=== PATIENT | female | born 1950 | race Hispanic/Latino ===

== ENCOUNTER 2020-07-26 07:00 | Observation (INO) | payer MEDICARE ==
--- NOTE | 2020-07-26 10:30 | Event Note ---
ED Screening Note ED Screening Note: was diagnosed UTI a week ago at [place] has been on abx for a week +generalized +dizziness +nausea one episode of vomiting no fever feels like room is spinning states she had a very brief episode of syncope +exertional SOB no CP no cough PMHx DM, vertigo, ?lupus repeat oxygen saturation 94% on RA This initial assessment/diagnostic orders/clinical plan/treatment(s) is/are subject to change based on patients health status, clinical progression and re- assessment by fellow clinical providers in the ED. Further treatment and workup at subsequent clinical providers discretion. Patient/guardian urged not to elope from the ED as their condition may be serious if not clinically assessed and managed. Initial orders include: labs, EKG, CXR, CT head
--- NOTE | 2020-07-26 11:30 | XRay Report ---
CHEST 2 VIEWS INDICATION / CLINICAL INFORMATION: weakness, hypoxia. COMPARISON: None available. FINDINGS: SUPPORT DEVICES: None. HEART / MEDIASTINUM: There is mild cardiomegaly. LUNGS / PLEURA: There is mild interstitial edema without focal consolidation. No pneumothorax. ADDITIONAL FINDINGS: No significant additional findings. IMPRESSION: 1. Findings likely indicating mild CHF with mild cardiomegaly and interstitial pulmonary edema. Signer Name: Moshe Eddy MD Signed: 07/26/2020 11:26 AM Workstation Name: [id number]
--- NOTE | 2020-07-26 12:50 | Cat Scan Report ---
CT head/brain wo con INDICATION / CLINICAL INFORMATION: 69 years Female; dizziness, syncope. TECHNIQUE: Routine CT head without contrast. All CT scans at this location are performed using CT dos e reduction for ALARA by means of automated exposure control. COMPARISON: None. FINDINGS: BRAIN / INTRACRANIAL CONTENTS: There is moderate cerebral white matter disease most consistent with m icrovascular angiopathy. There is mild cerebral atrophy. The ventricular system is correspondingly ap propriate in size and configuration. There are small foci of calcification within the left basal gang alix and along the third ventricle. However, there is no clear CT evidence of acute intracranial hemor rhage or significant mass effect. ORBITS: No significant abnormality of visualized orbits. SINUSES / MASTOIDS: There is mild opacification small air-fluid level along the posterior right sphen oid sinus. There is also scattered opacification within the residual right mastoid air cells and atti c. CRANIOCERVICAL JUNCTION: No significant abnormality. ADDITIONAL FINDINGS: None. IMPRESSION: 1. There is moderate microvascular angiopathy without CT ends of acute intracranial hemorrhage. 2. This mild opacification along the posterior right sphenoid sinus. There is also opacification of t he residual right mastoid air cells. Signer Name: Shaheen Butterfield MD Signed: 07/26/2020 12:45 PM Workstation Name: [id number]
[2020-07-26 14:25] LABS: Basophils % (Auto) 0.2 % (0.0-1.8); Eosinophils % (Auto) 0.1 % (0.0-4.3); Hemoglobin 13.6 gm/dl (10.1-14.3); Lymphocytes # (Auto) 0.6 K/mm3 (1.2-5.4); Lymphocytes % (Auto) 15.3 % (13.4-35.0); Mean Corpuscular HGB Conc 33 % (30-34); Mean Corpuscular Volume 98 fl (79-97); Monocytes # (Auto) 0.5 K/mm3 (0.0-0.8); Monocytes % (Auto) 12.2 % (0.0-7.3); Red Blood Count 4.28 M/mm3 (3.65-5.03); Red Cell Distribution Width 16.7 % (13.2-15.2)
[2020-07-26 14:28] LABS: Platelet Count 94 K/mm3 (140-440)
[2020-07-26 14:35] LABS: Albumin 3.2 g/dL (3.9-5); Calcium 9.1 mg/dL (8.4-10.2)
[2020-07-26] MEDS ORDERED: CEFEPIME/NS 2 GM/100 ML 2 GM/100 ML BAG IV ONE (14:52)
[2020-07-26] MEDS ORDERED: SODIUM CHLORIDE 0.9% 1000 ML 1,000 ML IV ONE (18:18)
--- NOTE | 2020-07-26 19:36 | Emergency Department Report ---
- General Chief complaint: Weakness Stated complaint: NAUSEA/EMESIS/SYNCOPE PUI?: No Time Seen by Provider: 07/26/20 10:24 Source: patient Mode of arrival: Wheelchair Limitations: No Limitations - History of Present Illness Initial comments: Chief complaint: Weakness HPI: This is a 69-year-old female with history of diabetes mellitus, hypertension, vertigo, blindness in 1 eye who presents with weakness fatigue dizziness. She has been on antibiotics for 7 days for UTI. She does not feel that it is helping. She was evaluated and treated overnight at [facility] 1 week ago. She was given antibiotics and IV fluid. Today she was just too weak to get up off her sofa. She denies nausea. She has been eating well. She called 911 for EMS transport this morning. She denies syncope. She denies chest pain. She does have nausea. Patient was concern for bilateral feet swelling exertional shortness of breath. Patient has had "the works". She has been eating well. Ate restaurant food for holiday. Medications: Pantoprazole Insulin NPH Metformin Lisinopril PCP Dr. Glo Lara MD Complaint: generalized weakness -: Gradual, week(s) (1) Location: generalized Severity: severe Consistency: constant Improves with: none Worsens with: exertion Context: recent illness Associated Symptoms: nausea/vomiting, other (feet swelling, dyspnea) - Related Data Allergies Allergy/AdvReac Type Severity Reaction Status Date / Time codeine Allergy Unknown Verified 07/26/20 08:39 Penicillins Allergy Rash Verified 07/26/20 08:39 ED Review of Systems ROS: Stated complaint: NAUSEA/EMESIS/SYNCOPE Other details as noted in HPI Comment: All other systems reviewed and negative Constitutional: malaise. denies: chills, fever Respiratory: shortness of breath. denies: wheezing Cardiovascular: denies: chest pain Gastrointestinal: nausea. denies: abdominal pain ED Past Medical Hx - Past Medical History Previous Medical History?: Yes Hx Hypertension: Yes Hx Diabetes: Yes Additional medical history: vertigo - Family History Family history: diabetes, hypertension - Social History Substance Use Type: None ED Physical Exam - General Limitations: No Limitations General appearance: alert, in no apparent distress - Head Head exam: Present: atraumatic, normocephalic - Eye Eye exam: Present: normal appearance - ENT ENT exam: Present: mucous membranes moist - Neck Neck exam: Present: normal inspection, full ROM - Respiratory Respiratory exam: Present: normal lung sounds bilaterally. Absent: respiratory distress, wheezes, rales, rhonchi - Cardiovascular Cardiovascular Exam: Present: regular rate, normal rhythm, normal heart sounds. Absent: systolic murmur, diastolic murmur, rubs, gallop - GI/Abdominal GI/Abdominal exam: Present: soft, normal bowel sounds. Absent: distended, tenderness, guarding, rebound - Extremities Exam Extremities exam: Present: pedal edema, other (pretibial edema) - Neurological Exam Neurological exam: Present: alert, oriented X3 - Psychiatric Psychiatric exam: Present: normal affect, normal mood - Skin Skin exam: Present: warm, dry, intact, normal color. Absent: rash ED Course Vital Signs 07/26/20 08:40 Temperature 97.5 F L Pulse Rate 86 Respiratory 18 Rate Blood Pressure 107/64 [Right] O2 Sat by Pulse 91 Oximetry ED Medical Decision Making - Lab Data Result diagrams: 07/26/20 13:28 07/26/20 20:11 Laboratory Results - last 24 hr 07/26/20 07/26/20 07/26/20 13:28 13:28 13:28 WBC 4.1 L RBC 4.28 Hgb 13.6 Hct 42.0 MCV 98 H MCH 32 MCHC 33 RDW 16.7 H Plt Count 94 L Lymph % (Auto) 15.3 [place] % (Auto) 12.2 H Eos % (Auto) 0.1 Baso % (Auto) 0.2 Lymph # (Auto) 0.6 L [place] # (Auto) 0.5 Eos # (Auto) 0.0 Baso # (Auto) 0.0 Seg Neutrophils % 72.2 H Seg Neutrophils # 3.0 Sodium 136 L Potassium 5.7 H Chloride 103.6 Carbon Dioxide 19 L Anion Gap 19 BUN 27 H Creatinine 2.2 H Estimated GFR 22 BUN/Creatinine Ratio 12 Glucose 154 H Lactic Acid 3.60 H* Calcium 9.1 Magnesium 1.90 Total Bilirubin 3.60 H AST 112 H ALT 57 H Alkaline Phosphatase 104 Total Creatine Kinase 137 H Troponin T 0.097 H NT-Pro-B Natriuret Pep 4060 H Total Protein 7.7 Albumin 3.2 L Albumin/Globulin Ratio 0.7 Urine Color Urine Turbidity Urine pH Ur Specific [place] Urine Protein Urine Glucose (UA) Urine Ketones Urine Blood Urine Nitrite Urine Bilirubin Urine Ictotest Urine Urobilinogen Ur Leukocyte Esterase Urine WBC (Auto) Urine RBC (Auto) U Epithel Cells (Auto) Urine Bacteria (Auto) Ur Renal Epithelial Cell Urine Mucus 07/26/20 07/26/20 07/26/20 15:22 19:09 20:11 WBC RBC Hgb Hct MCV MCH MCHC RDW Plt Count Lymph % (Auto) [place] % (Auto) Eos % (Auto) Baso % (Auto) Lymph # (Auto) [place] # (Auto) Eos # (Auto) Baso # (Auto) Seg Neutrophils % Seg Neutrophils # Sodium Potassium 5.6 H Chloride Carbon Dioxide Anion Gap BUN Creatinine Estimated GFR BUN/Creatinine Ratio Glucose Lactic Acid 3.40 H* Calcium Magnesium Total Bilirubin AST ALT Alkaline Phosphatase Total Creatine Kinase Troponin T NT-Pro-B Natriuret Pep Total Protein Albumin Albumin/Globulin Ratio Urine Color Ayanna Urine Turbidity Cloudy Urine pH 5.0 Ur Specific [place] 1.027 Urine Protein >500 Urine Glucose (UA) 50 Urine Ketones Neg Urine Blood Sm Urine Nitrite Neg Urine Bilirubin Sm Urine Ictotest Negative Urine Urobilinogen 2.0 Ur Leukocyte Esterase Neg Urine WBC (Auto) 47.0 H Urine RBC (Auto) 23.0 U Epithel Cells (Auto) 40.0 H Urine Bacteria (Auto) 1+ Ur Renal Epithelial Cell 3 Urine Mucus 1+ - EKG Data -: EKG Interpreted by Ne EKG shows normal: sinus rhythm, axis, QRS complexes Rate: normal - EKG Data Interpretation: nonspecific ST-T wave freya 07/26/20 19:34 EKG obatained 1104 EKG interpreted by nj NSR 90 nl axis prolonged Qtc NO st ELEVATION nonspecific T wave - Radiology Data Radiology results: report reviewed, image reviewed CHEST 2 VIEWS INDICATION / CLINICAL INFORMATION: weakness, hypoxia. COMPARISON: None available. FINDINGS: SUPPORT DEVICES: None. HEART / MEDIASTINUM: There is mild cardiomegaly. LUNGS / PLEURA: There is mild interstitial edema without focal consolidation. No pneumothorax. ADDITIONAL FINDINGS: No significant additional findings. IMPRESSION: 1. Findings likely indicating mild CHF with mild cardiomegaly and interstitial pulmonary edema CT head/brain wo con INDICATION / CLINICAL INFORMATION: 69 years Female; dizziness, syncope. TECHNIQUE: Routine CT head without contrast. All CT scans at this location are performed using CT dose reduction for ALARA by means of automated exposure control. COMPARISON: None. FINDINGS: BRAIN / INTRACRANIAL CONTENTS: There is moderate cerebral white matter disease most consistent with microvascular angiopathy. There is mild cerebral atrophy. The ventricular system is correspondingly appropriate in size and configuration. There are small foci of calcification within the left basal ganglia and along the third ventricle. However, there is no clear CT evidence of acute intracranial hemorrhage or significant mass effect. ORBITS: No significant abnormality of visualized orbits. SINUSES / MASTOIDS: There is mild opacification small air-fluid level along the posterior right sphenoid sinus. There is also scattered opacification within the residual right mastoid air cells and attic. CRANIOCERVICAL JUNCTION: No significant abnormality. ADDITIONAL FINDINGS: None. IMPRESSION: 1. There is moderate microvascular angiopathy without CT ends of acute intracranial hemorrhage. 2. This mild opacification along the posterior right sphenoid sinus. There is also opacification of the residual right mastoid air cells CT ABDOMEN AND PELVIS WITHOUT CONTRAST INDICATION / CLINICAL INFORMATION: abnormal LFTS MARQUIS. TECHNIQUE: Axial CT images were obtained through the abdomen and pelvis without IV con trast. All CT scans at this location are performed using CT dose reduction for ALARA by means of a utomated exposure control. COMPARISON: None available. FINDINGS: LOWER CHEST: Mild cardiomegaly and calcification of the mitral apparatus. Bibasilar scattered groundglass with interlobular septal thickening. Trace right-sided pleural effusion. 4 mm nodule in the left lung base (axial series 2 image 32). HEPATOBILIARY: Nodular contour suggesting cirrhosis. No focal lesion. Gallbladder is moderately distended with mild gallbladder wall thickening possibly representing sequela of hepatic disease or malnutrition. No biliary ductal dilatation. PANCREAS: No significant abnormality. SPLEEN: Mildly enlarged without focal lesion. ADRENALS: No significant abnormality. GENITOURINARY: 4 mm calcification at the right interpolar region possibly representing a nonobstructing nephrolith. Left kidney demonstrates no significant abnormality ureters demonstrate no significant abnormality. Bladder is decompressed. GASTROINTESTINAL/MESENTERY: Appendix demonstrates no significant abnormality. No significant bowel inflammation. No bowel obstruction. Mild scattered abdominal free fluid, likely ascites. Mild mesenteric haziness. RETROPERITONEUM: Multiple normal-sized retroperitoneal lymph nodes as well as some periaortic postoperative change. Prominent portal lymph nodes are present measuring up to 1.1 cm (axial series 2 image 56). REPRODUCTIVE ORGANS: No significant abnormality. VASCULAR: Moderate atherosclerotic calcification without acute abnormality. Mild-moderate distal esophageal, multiple varices are present. SKELETAL SYSTEM: No significant abnormality. ADDITIONAL FINDINGS: Moderate anasarca. IMPRESSION: 1. Cirrhotic morphology of liver with sequela of portal hypertension such as mild ascites, splenomegaly, and distal esophageal varices. 2. Mild cardia megaly and bibasilar scattered groundglass with interlobular septal thickening suggesting volume overload. Trace right-sided pleural effusion also present. 3. 4 mm left lung base pulmonary nodule. The patient with high risk for pulmonary neoplasm consider follow-up with dedicated CT chest in 12 months time. In a patient with low risk for pulmonary neoplasm no routine follow-up is recommended. 4. Right-sided nonobstructing nephrolith. 5. Additional findings as above. - Medical Decision Making 1. Acute kidney injury: I suspect hepatorenal syndrome causing acute tubular necrosis with diagnosis of cirrhosis. I confirm provided by CT abdomen pelvis obtained in the emergency department here today. 2. Cirrhosis, findings confirmed with CT obtained today. According to history obtained from [place] physician, patient has history of nonalcoholic hepatic steatosis. Recent CT obtained at [facility] a few days prior revealed new findings of cirrhosis. Elevated liver enzymes, hyperbilirubinemia prompted CT imaging of the abdomen. 3. Cardiomegaly, elevated BNP, pulmonary edema: No previous history of CHF. Unclear cause of cardiomyopathy. 4. Hypervolemia caused by cirrhosis and cardiomyopathy: Patient presented to the emergency department with shortness of breath fatigue pedal edema 5. I do not suspect sepsis or UTI. Lactic acidosis likely due to Metformin use. Patient does not present with signs of SIRS. UTI reveals epithelial cells, hematuria. Findings likely due to contamination versus ATN. Patient admitted to the hospital service telemetry in fair condition. I discussed case with [place] physician who approved patient to be admitted at our facility due to lack of capacity at outside hospitals. Hospitalist Dr. Young accepted patient. Critical Care Time: Yes Critical care time in (mins) excluding proc time.: 40 Critical care attestation.: If time is entered above; I have spent that time in minutes in the direct care of this critically ill patient, excluding procedure time. 40 minutes of critical care time excluding procedures were used in the care of the patient. I came immediately to the bedside upon patient's arrival to treatment room. I was initially concerned for sepsis. Also concern for multisystem organ failure. I discussed treatment plan with the nursing team members. I reviewed electronic record. Patient required multiple interventions and reassessments. I spoke with multiple consultants regarding patient's care. I was unable to attend to other patients while treating Mrs. Fletcher. ED Disposition Clinical Impression: Acute kidney injury, Cirrhosis, Acute heart failure, Hypervolemia Disposition: OP ADMIT IP TO THIS HOSP Is pt being admited?: Yes Condition: Fair
[2020-07-26 19:51] LABS: Bacteria,Urine 1+ /HPF (Negative); Bilirubin,Urine SM (Negative); Blood,Urine SM (Negative); Color,Urine Amber (Yellow); Mucus,Urine 1+ /HPF; Renal Epithelial Cells,Urine 3 /LPF
[2020-07-26 19:55] LABS: Protein,Urine >500 mg/dL (Negative)
[2020-07-26 19:56] LABS: Ictotest,Urine Negative (Negative)
--- NOTE | 2020-07-26 21:32 | Cat Scan Report ---
CT ABDOMEN AND PELVIS WITHOUT CONTRAST INDICATION / CLINICAL INFORMATION: abnormal LFTS MARQUIS. TECHNIQUE: Axial CT images were obtained through the abdomen and pelvis without IV contrast. All CT scans at [facility] location are performed using CT dose reduction for ALARA by means of automated exposure control. COMPARISON: None available. FINDINGS: LOWER CHEST: Mild cardiomegaly and calcification of the mitral apparatus. Bibasilar scattered groundg lass with interlobular septal thickening. Trace right-sided pleural effusion. 4 mm nodule in the left lung base (axial series 2 image 32). HEPATOBILIARY: Nodular contour suggesting cirrhosis. No focal lesion. Gallbladder is moderately diste nded with mild gallbladder wall thickening possibly representing sequela of hepatic disease or malnut rition. No biliary ductal dilatation. PANCREAS: No significant abnormality. SPLEEN: Mildly enlarged without focal lesion. ADRENALS: No significant abnormality. GENITOURINARY: 4 mm calcification at the right interpolar region possibly representing a nonobstructi ng nephrolith. Left kidney demonstrates no significant abnormality ureters demonstrate no significant abnormality. Bladder is decompressed. GASTROINTESTINAL/MESENTERY: Appendix demonstrates no significant abnormality. No significant bowel in flammation. No bowel obstruction. Mild scattered abdominal free fluid, likely ascites. Mild mesenteri c haziness. RETROPERITONEUM: Multiple normal-sized retroperitoneal lymph nodes as well as some periaortic postope rative change. Prominent portal lymph nodes are present measuring up to 1.1 cm (axial series 2 image 56). REPRODUCTIVE ORGANS: No significant abnormality. VASCULAR: Moderate atherosclerotic calcification without acute abnormality. Mild-moderate distal esop hageal, multiple varices are present. SKELETAL SYSTEM: No significant abnormality. ADDITIONAL FINDINGS: Moderate anasarca. IMPRESSION: 1. Cirrhotic morphology of liver with sequela of portal hypertension such as mild ascites, splenomega ly, and distal esophageal varices. 2. Mild cardia megaly and bibasilar scattered groundglass with interlobular septal thickening suggest ing volume overload. Trace right-sided pleural effusion also present. 3. 4 mm left lung base pulmonary nodule. The patient with high risk for pulmonary neoplasm consider f ollow-up with dedicated CT chest in 12 months time. In a patient with low risk for pulmonary neoplasm no routine follow-up is recommended. 4. Right-sided nonobstructing nephrolith. 5. Additional findings as above. Signer Name: Brad Christopher MD Signed: 07/26/2020 9:27 PM Workstation Name: [id number]
[2020-07-26] MEDS ORDERED: CALCIUM GLUCONATE 1,000 MG in SODIUM CHLORIDE 0.9% 100 ML IV ONE (22:41)
[2020-07-26] MEDS ORDERED: DEXTROSE 50% IN WATER (25GM) 50 ML SYRINGE IV PRN (22:45)
[2020-07-26] MEDS ORDERED: MAGNESIUM HYDROXIDE (MOM) ORAL LIQD UDC PO PRN (22:45)
[2020-07-26] MEDS ORDERED: ONDANSETRON 4 MG/2 ML INJ IV PRN (22:45)
[2020-07-26] MEDS ORDERED: ACETAMINOPHEN 325 MG TAB PO PRN (22:45)
--- NOTE | 2020-07-26 23:02 | History and Physical Report ---
History of Present Illness Date of examination: 07/26/20 Date of admission: 07/26/2020 Chief complaint: Weakness Fatigue Shortness of Breath lower extremity swelling History of present illness: 69-year-old female with known history of hypertension, diabetes mellitus and blindness in the right eye presenting in the emergency room today with generalized weakness and fatigue which has been ongoing for the past few days. She also indicates that she has been having shortness of breath and lower extremity swelling over the past few days. She denies any chest pain, no fever or chills, no nausea or vomiting, no headache or dizziness, denies any sick contacts and no recent travel. Denies any contact with anyone with COVID-19. Patient indicates that she had been on oral antibiotics-she cannot recall the name, for UTI for the past 7 days. She indicates she was treated at a [facility] facility about a week ago. Work-up in the emergency room today reveals cardiomegaly and findings consistent with pulmonary vascular congestion. Hyperkalemia of 5.7. Patient being admitted for CHF, UTI and hyperkalemia. NB: Patient follows up a [facility] facility. Past History Past Medical History: diabetes, hypertension, other (Blindness in right eye) Past Surgical History: No surgical history Social history: no significant social history Family history: no significant family history Medications and Allergies Allergies Allergy/AdvReac Type Severity Reaction Status Date / Time codeine Allergy Unknown Verified 07/26/20 08:39 Penicillins Allergy Rash Verified 07/26/20 08:39 Home Medications Medication Instructions Recorded Confirmed Last Taken Type Insulin NPH Hum/Reg Insulin Hm 100 unit SQ BID 07/27/20 07/27/20 Unknown History [HumuLIN 70/30 Kwikpen] Metformin HCl [metFORMIN] 1,000 mg PO BID 07/27/20 07/27/20 Unknown History Active Meds: Active Medications Acetaminophen (Tylenol) 650 mg PO Q4H PRN PRN Reason: Pain MILD(1-3)/Fever >100.5/LOWE Dextrose (D50w (25gm) Syringe) 50 ml IV Q30MIN PRN; Protocol PRN Reason: Hypoglycemia Furosemide (Lasix) 40 mg IV BID@0600,1800 R[facility] Heparin Sodium (Porcine) (Heparin) 5,000 unit SUB-Q Q8HR R[facility] Cefepime HCl (Cefepime/Ns 2 Gm/100 Ml) 2 gm in 100 mls @ 200 mls/hr IV Q8HR RUBINA; Protocol Insulin Human Lispro (Humalog) 0 unit SUB-Q ACHS RUBINA; Protocol Magnesium Hydroxide (Milk Of Magnesia) 30 ml PO Q4H PRN PRN Reason: Constipation Ondansetron HCl (Zofran) 4 mg IV Q8H PRN PRN Reason: Nausea And Vomiting Sodium Bicarbonate (Sodium Bicarbonate 50meq Syringe) 50 meq IV ONCE ONE Stop: 07/26/20 23:16 Sodium Chloride (Sodium Chloride Flush Syringe 10 Ml) 10 ml IV BID R[facility] Sodium Chloride (Sodium Chloride Flush Syringe 10 Ml) 10 ml IV PRN PRN PRN Reason: LINE FLUSH Sodium Polystyrene Sulfonate (Kionex) 15 gm PO ONCE ONE Stop: 07/26/20 22:58 Review of Systems Constitutional: fatigue, weakness, no fever, no chills Cardiovascular: no chest pain, no palpitations Respiratory: shortness of breath, no cough, no congestion, no wheezing Gastrointestinal: no abdominal pain, no nausea, no vomiting, no diarrhea Genitourinary Female: no pelvic pain, no flank pain, no dysuria, no hematuria Musculoskeletal: no neck pain, no low back pain Integumentary: no rash, no pruritis Neurological: no headaches, no confusion Psychiatric: no anxiety, no depression Exam - Constitutional Vitals: Temp Pulse Resp BP Pulse Ox 97.5 F L 86 18 107/64 91 07/26/20 08:40 07/26/20 08:40 07/26/20 08:40 07/26/20 08:40 07/26/20 08:40 General appearance: Present: no acute distress, well-nourished - EENT Eyes: Present: PERRL, EOM intact. Absent: scleral icterus ENT: hearing intact, clear oral mucosa, dentition normal - Neck Neck: Present: supple, normal ROM - Respiratory Respiratory effort: normal Respiratory: bilateral: rales - Cardiovascular Rhythm: regular Heart Sounds: Present: S1 & S2. Absent: gallop, systolic murmur, diastolic murmur, rub - Extremities Extremities: no ischemia, pulses intact, Full ROM Extremity abnormal: edema (Trace brenton.ankle edema) Peripheral Pulses: within normal limits - Integumentary Integumentary: Present: clear, warm, dry. Absent: rash - Musculoskeletal Musculoskeletal: strength equal bilaterally - Psychiatric Psychiatric: appropriate mood/affect, intact judgment & insight, memory intact, cooperative - Neurologic Neurologic: CNII-XII intact, no focal deficits, moves all extremities HEART Score - HEART Score Troponin: Troponin T 0.097 ng/mL (0.00-0.029) H 07/26/20 13:28 Results - Labs CBC & Chem 7: 07/26/20 13:28 07/26/20 20:11 Labs: Abnormal lab results 07/26/20 07/26/20 07/26/20 Range/Units 13:28 13:28 13:28 WBC 4.1 L (4.5-11.0) K/mm3 MCV 98 H (79-97) fl RDW 16.7 H (13.2-15.2) % Plt Count 94 L (140-440) K/mm3 [place] % (Auto) 12.2 H (0.0-7.3) % Lymph # (Auto) 0.6 L (1.2-5.4) K/mm3 Seg Neutrophils % 72.2 H (40.0-70.0) % Sodium 136 L (137-145) mmol/L Potassium 5.7 H (3.6-5.0) mmol/L Carbon Dioxide 19 L (22-30) mmol/L BUN 27 H (7-17) mg/dL Creatinine 2.2 H (0.6-1.2) mg/dL Glucose 154 H (65-100) mg/dL Lactic Acid 3.60 H* (0.7-2.0) mmol/L Total Bilirubin 3.60 H (0.1-1.2) mg/dL AST 112 H (5-40) units/L ALT 57 H (7-56) units/L Total Creatine Kinase 137 H (30-135) units/L Troponin T 0.097 H (0.00-0.029) ng/mL NT-Pro-B Natriuret Pep 4060 H (0-900) pg/mL Albumin 3.2 L (3.9-5) g/dL Urine WBC (Auto) (0.0-6.0) /HPF U Epithel Cells (Auto) (0-13.0) /HPF 07/26/20 07/26/20 07/26/20 Range/Units 15:22 19:09 20:11 WBC (4.5-11.0) K/mm3 MCV (79-97) fl RDW (13.2-15.2) % Plt Count (140-440) K/mm3 [place] % (Auto) (0.0-7.3) % Lymph # (Auto) (1.2-5.4) K/mm3 Seg Neutrophils % (40.0-70.0) % Sodium (137-145) mmol/L Potassium 5.6 H (3.6-5.0) mmol/L Carbon Dioxide (22-30) mmol/L BUN (7-17) mg/dL Creatinine (0.6-1.2) mg/dL Glucose (65-100) mg/dL Lactic Acid 3.40 H* (0.7-2.0) mmol/L Total Bilirubin (0.1-1.2) mg/dL AST (5-40) units/L ALT (7-56) units/L Total Creatine Kinase (30-135) units/L Troponin T (0.00-0.029) ng/mL NT-Pro-B Natriuret Pep (0-900) pg/mL Albumin (3.9-5) g/dL Urine WBC (Auto) 47.0 H (0.0-6.0) /HPF U Epithel Cells (Auto) 40.0 H (0-13.0) /HPF Assessment and Plan - Patient Problems (1) Acute heart failure Current Visit: Yes Status: Acute Plan to address problem: Patient placed on diuretics. Will monitor input and output and also monitor d aily weight. Patient will be scheduled for echocardiogram. (2) UTI (urinary tract infection) Current Visit: Yes Status: Acute Plan to address problem: Patient placed on empiric IV antibiotics. Will await urine culture result. (3) Hyperkalemia Current Visit: Yes Status: Acute Plan to address problem: Patient has had insulin, calcium gluconate and sodium bicarb in the emergency room. Will also place on Kayexalate. Will monitor EKG and potassium level. (4) Diabetes mellitus Current Visit: Yes Status: Acute Plan to address problem: We will monitor Accu-Cheks. (5) Elevated liver enzymes Current Visit: Yes Status: Acute Plan to address problem: Patient states she was informed that she has liver disease but unclear of the etiology. We will place a consult to gastroenterology for evaluation. (6) Hypertension Current Visit: Yes Status: Acute Plan to address problem: We will resume routine home medications and monitor vital signs closely. (7) DVT prophylaxis Current Visit: Yes Status: Acute Plan to address problem: Patient placed on subcutaneous heparin. (8) Full code status Current Visit: Yes Status: Acute
[2020-07-26] MEDS ORDERED: SODIUM BICARB 8.4% 50 MEQ/50 ML SYRINGE IV ONE (23:15)
[2020-07-26] MEDS ORDERED: SODIUM POLYSTYRENE 15 GM/60 ML ORAL LIQD PO ONE (23:45)
[2020-07-27] MEDS ORDERED: SODIUM POLYSTYRENE 15 GM/60 ML ORAL LIQD PO ONE (06:39)
[2020-07-27] MEDS: HEPARIN 5,000 UNIT/1 ML VIAL SUB-Q SCH ×2 (06:41→13:49)
[2020-07-27] MEDS: FUROSEMIDE 40 MG/4 ML INJ IV SCH ×2 (06:41→17:42)
[2020-07-27 08:13] LABS: Hematocrit 40.5 % (30.3-42.9); Hemoglobin 13.4 gm/dl (10.1-14.3); Mean Corpuscular HGB Conc 33 % (30-34); Mean Corpuscular Volume 98 fl (79-97); Platelet Count 60 K/mm3 (140-440); Red Blood Count 4.15 M/mm3 (3.65-5.03); Red Cell Distribution Width 15.9 % (13.2-15.2)
[2020-07-27 08:14] LABS: Basophils % (Auto) 0.8 % (0.0-1.8); Eosinophils % (Auto) 0.6 % (0.0-4.3); INR 1.46 (0.87-1.13); Lymphocytes # (Auto) 0.4 K/mm3 (1.2-5.4); Lymphocytes % (Auto) 10.9 % (13.4-35.0)
[2020-07-27 08:15] LABS: Monocytes # (Auto) 0.6 K/mm3 (0.0-0.8)
[2020-07-27] MEDS: INSULIN LISPRO 100 UNIT/ML VIAL 3 mL SUB-Q SCH ×3 (09:25→17:42)
[2020-07-27] MEDS ORDERED: CEFEPIME/NS 2 GM/100 ML 2 GM/100 ML BAG IV SCH (10:00)
[2020-07-27 10:11] LABS: Bilirubin,Direct 1.7 mg/dL (0-0.2); Calcium 9.3 mg/dL (8.4-10.2)
[2020-07-27 10:12] LABS: Albumin 3.3 g/dL (3.9-5)
--- NOTE | 2020-07-27 11:49 | Consultation ---
History of Present Illness Consult date: 07/27/20 Consult reason: congestive heart failure History of present illness: The patient is a 69-year-old woman, patient of [facility], with a history of hypertension and diabetes. She was admitted to this hospital with complaints of weakness and general malaise. Prior to this, she states that she was treated for a week with antibiotics for a suspected UTI, but felt she was not getting clinically better. On arrival to the hospital, she was also noted to have bilateral lower extremity edema which she states has been intermittent for several months. There was no chest pain, no expressed shortness of breath, and no palpitations. She reports no prior cardiac history, has never seen a supply assistant in the past, and states that 2 years ago she had an echocardiogram at the [facility] office results of which was reported to her as being "fine". Cardiology consultation was requested for further assessment of her persistent edema and possible cardiogenic fluid overload. Today, she underwent an echocardiogram ordered by the medical service. The echo showed a marked sclerosis and calcification of the mitral and aortic valves, with at least moderate aortic stenosis, and moderate to severe mitral stenosis. There was dilatation of the left atrium likely due to chronic mitral stenosis, and dilatation of the right heart chambers with severe pulmonary hypertension, pulmonary artery systolic pressure of 78. The right heart dilatation suggests cor pulmonale in addition to left heart valvular disease. Conversely, left ventricular chamber size and systolic function are normal with ejection fraction at 60 to 65%. The patient denies any known history of rheumatic fever as a child or adolescent. EKG on this presentation is normal sinus rhythm, with QS complexes suggestive of a prior anterior myocardial infarction. Chest x-ray shows cardiomegaly, clear lungs with no significant interstitial edema. Most pertinent finding on laboratory exam shows chronic kidney disease with creatinine of 2.2. Past History Past Medical History: diabetes, hypertension, other (Blindness in right eye) Past Surgical History: No surgical history Social history: no significant social history Family history: no significant family history Medications and Allergies Allergies Allergy/AdvReac Type Severity Reaction Status Date / Time codeine Allergy Unknown Verified 07/26/20 08:39 Penicillins Allergy Rash Verified 07/26/20 08:39 Home Medications Medication Instructions Recorded Confirmed Last Taken Type Insulin NPH Hum/Reg Insulin Hm 100 unit SQ BID 07/27/20 07/27/20 Unknown History [HumuLIN 70/30 Kwikpen] Metformin HCl [metFORMIN] 1,000 mg PO BID 07/27/20 07/27/20 Unknown History Active Meds: Active Medications Acetaminophen (Tylenol) 650 mg PO Q4H PRN PRN Reason: Pain MILD(1-3)/Fever >100.5/LOWE Last Admin: 07/27/20 04:20 Dose: 650 mg Documented by: Dextrose (D50w (25gm) Syringe) 0 ml IV Q30MIN PRN; Protocol PRN Reason: Hypoglycemia Furosemide (Lasix) 40 mg IV BID@0600,1800 [facility] Last Admin: 07/27/20 06:41 Dose: 40 mg Documented by: Heparin Sodium (Porcine) (Heparin) 5,000 unit SUB-Q Q8HR [facility] Last Admin: 07/27/20 06:41 Dose: 5,000 unit Documented by: Cefepime HCl (Cefepime/Ns 2 Gm/100 Ml) 2 gm in 100 mls @ 200 mls/hr IV Q24HR RUBINA; Protocol Last Admin: 07/27/20 09:25 Dose: 200 mls/hr Documented by: Insulin Human Lispro (Humalog) 0 unit SUB-Q ACHS RUBINA; Protocol Last Admin: 07/27/20 09:25 Dose: 2 unit Documented by: Magnesium Hydroxide (Milk Of Magnesia) 30 ml PO Q4H PRN PRN Reason: Constipation Ondansetron HCl (Zofran) 4 mg IV Q8H PRN PRN Reason: Nausea And Vomiting Sodium Chloride (Sodium Chloride Flush Syringe 10 Ml) 10 ml IV BID [facility] Last Admin: 07/27/20 09:25 Dose: 10 ml Documented by: Sodium Chloride (Sodium Chloride Flush Syringe 10 Ml) 10 ml IV PRN PRN PRN Reason: LINE FLUSH Last Admin: 07/27/20 01:21 Dose: 10 ml Documented by: Review of Systems Cardiovascular: edema, shortness of breath, no chest pain, no orthopnea, no palpitations, no rapid/irregular heart beat, no syncope, no lightheadedness Physical Examination Vital Signs Temp Pulse Resp BP Pulse Ox 97.5 F L 86 18 107/64 91 07/26/20 08:40 07/26/20 08:40 07/26/20 08:40 07/26/20 08:40 07/26/20 08:40 General appearance: no acute distress HEENT: Positive: PERRL Neck: Positive: neck supple Cardiac: Positive: Reg Rate and Rhythm, Systolic Murmur Lungs: Positive: Decreased Breath Sounds Neuro: Positive: Grossly Intact Abdomen: Positive: Soft Female genitourinary: deferred Skin: Positive: Clear Extremities: Present: +1 Edema Results 07/27/20 07:37 07/27/20 07:37 Cardiac Enzymes 07/26/20 07/27/20 Range/Units 13:28 07:37 AST 112 H 87 H (5-40) units/L Coagulation 07/27/20 Range/Units 07:37 PT 17.6 H (12.2-14.9) Sec. INR 1.46 H (0.87-1.13) CBC 07/26/20 07/27/20 Range/Units 13:28 07:37 WBC 4.1 L 4.0 L (4.5-11.0) K/mm3 RBC 4.28 4.15 (3.65-5.03) M/mm3 Hgb 13.6 13.4 (10.1-14.3) gm/dl Hct 42.0 40.5 (30.3-42.9) % Plt Count 94 L 60 L (140-440) K/mm3 Lymph # (Auto) 0.6 L 0.4 L (1.2-5.4) K/mm3 [place] # (Auto) 0.5 0.6 (0.0-0.8) K/mm3 Eos # (Auto) 0.0 0.0 (0.0-0.4) K/mm3 Baso # (Auto) 0.0 0.0 (0.0-0.1) K/mm3 Comprehensive Metabolic Panel 07/26/20 07/26/20 07/27/20 Range/Units 13:28 20:11 07:37 Sodium 136 L 135 L (137-145) mmol/L Potassium 5.7 H 5.6 H 4.8 (3.6-5.0) mmol/L Chloride 103.6 103.3 (98-107) mmol/L Carbon Dioxide 19 L 19 L (22-30) mmol/L BUN 27 H 34 H (7-17) mg/dL Creatinine 2.2 H 2.2 H (0.6-1.2) mg/dL Glucose 154 H 189 H (65-100) mg/dL Calcium 9.1 9.3 (8.4-10.2) mg/dL Direct Bilirubin 1.7 H (0-0.2) mg/dL Indirect Bilirubin 1.9 mg/dL AST 112 H 87 H (5-40) units/L ALT 57 H 52 (7-56) units/L Alkaline Phosphatase 104 104 (35-129) units/L Total Protein 7.7 8.2 (6.3-8.2) g/dL Albumin 3.2 L 3.3 L (3.9-5) g/dL EKG interpretations - Telemetry EKG Rhythm: Sinus Rhythm Assessment and Plan - Patient Problems (1) Rheumatic valvular disease Current Visit: Yes Status: Acute Plan to address problem: Patient has moderate aortic stenosis and moderate to severe mitral stenosis, consistent with rheumatic valvular disease. She is in a stable sinus rhythm, lowe s mild bilateral lower extremity edema, otherwise asymptomatic. We will manage medically with diuretics as tolerated, optimal blood pressure control using an AV node or heart rate lowering agent. Further evaluation and management of valvular disease will be deferred to outpatient setting after current treatment of ongoing urinary tract infection. (2) Pulmonary hypertension Current Visit: Yes Status: Acute Plan to address problem: Right heart pressure and volume overload as well as the presence of liver cirrho sis on the primary drivers of the persistent lower extremity edema. Continue diuretic therapy as tolerated, further management will depend on clinical course. Unfortunately future surgical management of the valvular disease will be complicated by the severity of the pulmonary hypertension.
--- NOTE | 2020-07-27 15:12 | Discharge Summary ---
Providers - Providers Date of Admission: 07/26/20 22:40 Date of discharge: 07/27/20 Attending physician: DEEP MUÑOZ 07/26/20 22:45 Consult to Physician [CONS] Routine Comment: Consulting Provider: DUSTIN FIELD Physician Instructions: Reason For Exam: CHF- New Onset 07/26/20 22:46 Consult to Dietitian/Nutrition [CONS] Routine Physician Instructions: Reason For Exam: Reason for Consult: Diet education Primary care physician: PM HEAD COOK Hospitalization Condition: Fair Hospital course: The patient is a 69-year-old woman, patient of [facility], with a history of hypertension and diabetes admitted to this hospital with complaints of weakness, intermittent bilateral lower extremity edema, and generalized malaise. Patient was admitted for possible CHF exacerbation. Cardiology consultation was requested for further assessment. Today, she underwent an echocardiogram ordered by the medical service. The echo showed a marked sclerosis and calcification of the mitral and aortic valves, with at least moderate aortic stenosis, and moderate to severe mitral stenosis, dilatation of the left atrium likely due to chronic mitral stenosis, and dilatation of the right heart chambers with severe pulmonary hypertension, pulmonary artery systolic pressure of 78. Conversely, left ventricular chamber size and systolic function are normal with ejection fraction at 60 to 65%. Chest x-ray shows cardiomegaly, clear lungs with no significant interstitial edema. Most pertinent finding on laboratory exam shows chronic kidney disease with creatinine of 2.2 and potassium of 5.6. Cardiology recommended medical management of the valvular stenosis and outpatient follow-up with school business manager at [facility]. Repeat BMP revealed stable creatinine and normal potassium level. Patient was recommended outpatient follow-up and was discharged home in stable condition. 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 Mild hyponatremia Hyperkalemia resolved Chronic kidney disease, creatinine stable Elevated LFT likely due to hepatic congestion from right heart failure Pulmonary hypertension DM type 2 on insulin Core Measure Documentation - Palliative Care Palliative Care/ Comfort Measures: Not Applicable - Core Measures Any of the following diagnoses?: heart failure - Heart Failure Discharge Requirements DORINA/ARB for LVSD if EF <40%: Not Applicable Beta bakari at discharge: Yes Exam - Constitutional Vitals: Temp Pulse Resp BP Pulse Ox 98.2 F 98 H 20 126/52 96 07/27/20 12:07/27/20 12:07/27/20 12:07/27/20 12:01 07/27/20 12:01 Plan Activity: no driving until cleared by PCP Weight Bearing Status: Non-Weight Bearing Diet: low fat, low salt Special Instructions: record daily BP diary Additional Instructions: Follow-up with school business manager in 1 week Follow up with: PRIMARY CARE,MD [Primary Care Provider] - 7 Days Prescriptions: Furosemide [Lasix TAB] 40 mg PO QDAY #30 tablet levoFLOXacin [Levaquin] 250 mg PO QDAY #3 tablet Metoprolol [Lopressor TAB] 12.5 mg PO BID #30 tablet
[2020-07-27 16:37] VITALS: BP 101/89
[2020-07-27] MEDS ORDERED: METOPROLOL TARTRATE 25 MG TAB PO SCH (17:00)
== END 2020-07-27 19:39 | disposition home or self-care (01) ==
LOC: ED 07:00 → 4A 22:40
PROVIDERS: ADMIT Internal Medicine Geriatric Medicine; ATTEND Internal Medicine
DX: I13.0 Hypertensive heart and chronic kidney disease with heart failure and stage 1 through stage 4 chronic kidney disease, or unspecified chronic kidney disease (principal); I50.9 Heart failure, unspecified; N18.9 Chronic kidney disease, unspecified; N17.9 Acute kidney failure, unspecified; K74.60 Unspecified cirrhosis of liver; E87.70 Fluid overload, unspecified; N39.0 Urinary tract infection, site not specified; E87.5 Hyperkalemia; R79.89 Other specified abnormal findings of blood chemistry; H54.61 Unqualified visual loss, right eye, normal vision left eye; I09.1 Rheumatic diseases of endocardium, valve unspecified; E87.1 Hypo-osmolality and hyponatremia; E11.22 Type 2 diabetes mellitus with diabetic chronic kidney disease; Z79.4 Long term (current) use of insulin
CPT/HCPCS: 36415; 70450; 71046; 74176; 80048; 80053; 80076; 81001; 82140; 82550; 82962; 83735; 83880; 84132; 84484; 85025; 85610; 87086; 93005; 93306; 96361; 96365; 96366; 96372; 96375; 99291; G0378; J0610; J0692; J1644; J1940; J7030